=== PATIENT | male | born 1950 | race Caucasian/White ===

== ENCOUNTER 2024-02-24 14:57 | Emergency (ER) | payer MEDICARE, OTHER, SELFPAY ==
--- NOTE | 2024-02-24 15:02 | XRR_ITS ---
PROCEDURE INFORMATION: Exam: XR Chest Exam date and time: 02/24/2024 3:13 PM Age: 74 years old Clinical indication: Pain; Angina pectoris; Additional info: Cp TECHNIQUE: Imaging protocol: Radiologic exam of the chest. Views: 1 view. COMPARISON: No relevant prior studies available. FINDINGS: Lungs: There is no consolidation. Pleural spaces: The right lateral costophrenic sulcus is blunted. No pneumothorax. Heart/Mediastinum: There is mild enlargement of the cardiac silhouette. Bones/joints: Bones are unremarkable. XR/XR chest 1V portable [id number] IMPRESSION: Small right pleural effusion.
[2024-02-24 15:03] VITALS: BP 164/74; PULSE 67; RESP 18; TEMP 36.6; O2SAT 94; BMI 33.4
--- NOTE | 2024-02-24 15:03 | ECG_ITS ---
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 Measurements Intervals [place] Rate: 67 P: 55 [place]: 173 QRS: 57 QRSD: 89 T: 19 QT: 391 QTc: 414 Interpretive Statements SINUS RHYTHM No previous ECG available for comparison Electronically Signed On 02-24-2024 17:19:02 CDT by Lorenzo Aj M.D. [id number]
--- NOTE | 2024-02-24 15:37 | ED_ITS ---
HPI - Chest Pain 2 General: Chief Complaint: Chest Pain Stated Complaint: chest pains Time Seen by Provider: 02/24/24 15:29 Source: patient Mode of arrival: ambulatory Limitations: no limitations History of Present Illness: 74-year-old male states has been having chest pain that is mainly inspirational chest pain has been going on for 3 months. States he is gets sharp pain with inspiration and with exertion denies any pain currently denies any fever denies any cough. Associated symptoms: Reports dyspnea; Deny abdominal pain, fever(s), nausea or vomiting Review of Systems 2 Const: Denies: fever(s), chills, body aches or change in appetite ENMT: Denies: throat pain or dental pain Card: Reports: chest pain Resp: Reports: dyspnea GI: Denies: abdominal pain, nausea, vomiting or diarrhea Musc: Denies: neck pain or back pain Skin/Breast: Denies: rash Neuro: Denies: headache(s) Physical Exam 2 Const: COMMON NORMALS: no acute distress, patient oriented x3 and healthy appearing HENMT: COMMON NORMALS: normocephalic and atraumatic HEAD & SCALP: n ormocephalic and atraumatic Neck/C-Spine: COMMON NORMALS: full ROM and supple Chest: COMMONS NORMALS: normal inspection of the chest Resp: COMMON NORMALS: normal respiratory effort, No retractions, No use of accessory muscles and clear to auscultation bilaterally AUSCULTATION: clear to auscultation bilaterally Cardio: COMMON NORMALS: regular rate, regular rhythm and No murmurs present (Cardio) RATE: regular rate RHYTHM: regular rhythm GI: COMMON NORMALS: Normal to inspection, nondistended, normoactive bowel sounds present, Soft to palpation, non-tender and no masses PALPATION: Yes Soft to palpation Extremity: COMMON NORMALS: normal to inspection and full ROM Neuro: COMMON NORMALS: patient oriented x3, moves all extremities and no focal motor deficits Psych: COMMON NORMALS: mental status grossly normal, Normal thought process present and cooperative THOUGHT PROCESS: Normal thought process present Skin: COMMON NORMALS: no rashes or lesions noted and no wounds GENERAL SKIN EXAM: no rashes or lesions noted Course 2 Vital Signs: Vital signs: Vital Signs Temperature 97.8 F 02/24/24 15:03 Pulse Rate 61 02/24/24 17:00 Respiratory Rate 26 H 02/24/24 17:00 Blood Pressure 164/74 02/24/24 15:03 Pulse Oximetry 94 02/24/24 17:00 Oxygen Delivery Me thod Room Air 02/24/24 15:03 MDM - Chest Pain Medical Decision Making Patient presents here with chest pain dyspnea CT did show an pneumonitis patient was given Decadron here is no signs of PE troponins are negative no signs of ACS will prescribe him doxycycline as well he is to follow-up with PCP and return if worsening he understands agrees to plan. Medical Records I reviewed the patient's medical records. Lab Data I reviewed the patient's lab results. 02/24/24 15:35 02/24/24 15:35 Radiology Impressions Chest X-Ray 02/24/24 15:02 IMPRESSION: Small right pleural effusion. Chest CTA 02/24/24 16:13 IMPRESSION: 1. No pulmonary embolism. 2. Diffuse mosaic perfusion of the lung parenchyma. Differential diagnosis includes acute or chronic small airways disease and hypersensitivity pneumonitis. Mild interstitial edema may be present. 3. Small simple dependent right pleural effusion. 4. Tracheobronchomalacia. 5. Thyroid nodules. Recommend nonemergent follow-up ultrasound. 6. Moderate splenic enlargement. COMMENTS: Consistent with the [place]'s Incidental Findings Committee white paper (J Am Yaima Radiol 2015): In patients aged 35 years and older with an incidental thyroid nodule equal to or greater than 1.[address], MRI or extrathyroidal US, further evaluation with dedicated thyroid US is recommended for patients with normal life expectancy and without comorbidities. For smaller nodules without suspicious features, no further evaluation or follow up is recommended. Laboratory Results WBC 4.44 10^3/uL (3.29-11.43) 02/24/24 15:35 RBC 4.47 10^6/uL (3.85-5.65) 02/24/24 15:35 Hgb 11.20 g/dL (11.27-16.99) L 02/24/24 15:35 Hct 36.3 % (37-53) L 02/24/24 15:35 MCV 81.2 fl (82-101) L 02/24/24 15:35 MCH 25.1 pg (27-33) L 02/24/24 15:35 MCHC 30.9 g/dL (30-55) 02/24/24 15:35 RDW 16.3 % (12.1-15.1) H 02/24/24 15:35 Plt Count 236 10^3/cmm (157-399) 02/24/24 15:35 MPV 10.0 fL (7.4-10.4) 02/24/24 15:35 Neut % (Auto) 62.2 % 02/24/24 15:35 Lymph % (Auto) 20.7 % 02/24/24 15:35 [place] % (Auto) 6.3 % 02/24/24 15:35 Eos % (Auto) 9.5 % 02/24/24 15:35 Baso % (Auto) 1.1 % 02/24/24 15:35 Neut # (Auto) 2.76 10^3/uL (1.8-7.7) 02/24/24 15:35 Lymph # (Auto) 0.9 10^3/uL (0.8-4.8) 02/24/24 15:35 [place] # (Auto) 0.3 10^3/uL (0.2-0.9) 02/24/24 15:35 Eos # (Auto) 0.4 10^3/uL (0.0-0.8) 02/24/24 15:35 Baso # (Auto) 0.1 10^3/uL (0.0-0.1) 02/24/24 15:35 Nucleated RBC % (auto) 0 % 02/24/24 15:35 Nucleated RBCs # 0.0 /100WBC 02/24/24 15:35 D-Dimer 3.76 ug/mLFEU (0-0.59) H 02/24/24 15:35 Sodium 138 mmol/L (136-145) 02/24/24 15:35 Potassium 4.6 mmol/L (3.5-5.1) 02/24/24 15:35 Chloride 103 mmol/L (98-107) 02/24/24 15:35 Carbon Dioxide 24 mmol/L (22-29) 02/24/24 15:35 Anion Gap 15.6 (5-19) 02/24/24 15:35 BUN 18 mg/dL (8-23) 02/24/24 15:35 Creatinine 1.2 mg/dL (0.7-1.2) 02/24/24 15:35 GFR Calculation Not Reportable 02/24/24 15:35 Glucose 121 mg/dL (65-115) H 02/24/24 15:35 Calculated Osmolality 289 mOsm/kg (285-295) 02/24/24 15:35 Calcium 8.9 mg/dL (8.5-10.5) 02/24/24 15:35 Total Bilirubin 0.5 mg/dL (0.15-1.2) 02/24/24 15:35 AST 15 U/L (0-40) 02/24/24 15:35 ALT 11 U/L (0-41) 02/24/24 15:35 Alkaline Phosphatase 105 U/L (40-130) 02/24/24 15:35 Troponin T Baseline 39 ng/L (0-15) H 02/24/24 15:35 Troponin T 120 Minute 31.74 ng/L (0-15) H 02/24/24 17:46 Delta Troponin T -7.26 ABS# (0-10) L 02/24/24 17:46 NT-Pro-B Natriuret Pep 425 pg/mL (0-125) H 02/24/24 15:35 Total Protein 7.8 g/dL (6.6-8.7) 02/24/24 15:35 Albumin 3.7 g/dL (3.5-5.2) 02/24/24 15:35 Globulin 4.1 g/dL (1.3-4.6) 02/24/24 15:35 All radiology interpretation(s) finalized by discharge EKG Data EKG 1: I personally reviewed and interpreted this EKG as follows: EKG interpretation date: 02/24/24 EKG interpretation time: 14:56 Interpretation: nsr hr [address] or t wave abnormalities qrs 89 qtc 406 Discharge Plan Discharge Patient Disposition: Home Clinical Impression: Pneumonitis Condition: Stable Prescriptions: New doxycycline hyclate 100 mg tablet 100 mg PO BID 7 Days Qty: 14 0RF Discharge Orders: Discharge ED (Routine); Ordered 02/24/24 Ordered By: Alicja Russo Discharge Diet: Advance as tolerated Discharge Activity: Resume usual activity Patient Instructions: Chest Pain (ED), Shortness of Breath (ED) Coding Level of Care Code ED Director [employer] for [facility]
[2024-02-24 15:43] LABS: Basophils # 0.1 10^3/uL (0.0-0.1); Basophils % 1.1 %; Eosinophils # 0.4 10^3/uL (0.0-0.8); Eosinophils % 9.5 %; Hematocrit 36.3 % (37-53); Lymphocytes # 0.9 10^3/uL (0.8-4.8); Lymphocytes % 20.7 %; Mean Corpuscular HGB Conc 30.9 g/dL (30-55); Mean Corpuscular Hemoglobin 25.1 pg (27-33); Mean Corpuscular Volume 81.2 fl (82-101); Monocytes # 0.3 10^3/uL (0.2-0.9); Monocytes % 6.3 %; Neutrophils # 2.76 10^3/uL (1.8-7.7); Neutrophils % 62.2 %; Nucleated Red Blood Cells % 0 %; Platelet Count 236 10^3/cmm (157-399); Red Blood Count 4.47 10^6/uL (3.85-5.65); Red Cell Distribution Width 16.3 % (12.1-15.1); White Blood Count 4.44 10^3/uL (3.29-11.43)
[2024-02-24 16:00] VITALS: PULSE 64; RESP 18; O2SAT 94
[2024-02-24 16:07] LABS: D Dimer 3.76 ug/mLFEU (0-0.59)
[2024-02-24 16:09] LABS: Troponin(5th) Baseline 39 ng/L (0-15)
--- NOTE | 2024-02-24 16:13 | CTR_ITS ---
PROCEDURE INFORMATION: Exam: CTA Chest With Contrast Exam date and time: 02/24/2024 5:18 PM Age: 74 years old Clinical indication: Dyspnea; Patient HX: C/O left sided sharp chest pain when he inhales. States that it started today. Yesterday the pain was bilat ribs. Yesterday reports fever. HX HTN, t2dm, wears cpap denies n/v/d/cough/ sob/ dizzy/light-headedness. TECHNIQUE: Imaging protocol: Computed tomographic angiography of the chest with contrast. Exam focused on the arteries. 3D rendering (Not supervised by radiologist): MIP and/or 3D reconstructed images were created by the technologist. Radiation optimization: All CT scans at this facility use at least one of these dose optimization techniques: automated exposure control; mA and/or kV adjustment per patient size (includes targeted exams where dose is matched to clinical indication); or iterative reconstruction. Contrast material: OMNI 350; Contrast volume: 100 ml; Contrast route: INTRAVENOUS (IV); COMPARISON: CR XR chest 1V portable [id number] 02/24/2024 3:13 PM RADIATION DOSE METRICS: Total DLP (mGy-cm): 511.37 FINDINGS: Pulmonary arteries: The pulmonary arteries are adequately opacified for evaluation to the subsegmental level. There is no filling defect to suggest embolism. Aorta: The aorta is unremarkable. There is no aneurysm. Thyroid: Bilateral thyroid nodules measuring up to 19 mm. Lungs: Diffuse mosaic perfusion of the lung parenchyma characterized by patchy geographic areas of normal lung parenchyma, hyperlucent areas and ground-glass densities. No focal consolidation. Mild dependent atelectasis in the lung bases. There is decreased AP diameter of the distal trachea and central bronchi consistent with tracheobronchomalacia. Mild central bronchial wall thickening in the lower lungs. Pleural spaces: Small simple dependent right pleural effusion. Heart: There is mild cardiac enlargement. There is no pericardial effusion. Lymph nodes: There is no mediastinal or hilar lymphadenopathy. Spleen: The spleen is moderately enlarged. Bones/joints: Bones are unremarkable. Soft tissues: The extrathoracic soft tissues are unremarkable. CT/CT angio chest PE protcl [id number] IMPRESSION: 1. No pulmonary embolism. 2. Diffuse mosaic perfusion of the lung parenchyma. Differential diagnosis includes acute or chronic small airways disease and hypersensitivity pneumonitis. Mild interstitial edema may be present. 3. Small simple dependent right pleural effusion. 4. Tracheobronchomalacia. 5. Thyroid nodules. Recommend nonemergent follow-up ultrasound. 6. Moderate splenic enlargement. COMMENTS: Consistent with the [employer] [employer]'s Incidental Findings Committee white paper (J Am Yaima Radiol 2015): In patients aged 35 years and older with an incidental thyroid nodule equal to or greater than 1.[address], MRI or extrathyroidal US, further evaluation with dedicated thyroid US is recommended for patients with normal life expectancy and without comorbidities. For smaller nodules without suspicious features, no further evaluation or follow up is recommended.
[2024-02-24 16:19] LABS: Alanine Aminotransferase 11 U/L (0-41); Albumin Level 3.7 g/dL (3.5-5.2); Alkaline Phosphatase 105 U/L (40-130); Anion Gap 15.6 (5-19); Aspartate Amino Transferase 15 U/L (0-40); Blood Urea Nitrogen 18 mg/dL (8-23); Calcium 8.9 mg/dL (8.5-10.5); Carbon Dioxide 24 mmol/L (22-29); Chloride 103 mmol/L (98-107); Creatinine Clr Calc Pharmacy 63.7154; Globulin 4.1 g/dL (1.3-4.6); Glucose 121 mg/dL (65-115); NT Pro B Type Natriuretic Pept 425 pg/mL (0-125); Osmolality Calculated 289 mOsm/kg (285-295); Potassium 4.6 mmol/L (3.5-5.1); Sodium 138 mmol/L (136-145); Total Bilirubin 0.5 mg/dL (0.15-1.2); Total Protein 7.8 g/dL (6.6-8.7)
[2024-02-24 16:30] VITALS: PULSE 61; RESP 19; O2SAT 93
[2024-02-24 17:00] VITALS: PULSE 61; RESP 26; O2SAT 94
--- NOTE | 2024-02-24 17:03 | ECG_ITS ---
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 Measurements Intervals [place] Rate: 64 P: 47 [place]: 213 QRS: 3 QRSD: 86 T: 30 QT: 418 QTc: 432 Interpretive Statements SINUS RHYTHM WITH FIRST DEGREE AV BLOCK Compared to ECG 02/24/2024 14:56:24 First degree AV block now present Electronically Signed On 02-24-2024 17:22:16 CDT by Lorenzo Aj M.D. [email or web address] Expressionsac[id number]
[2024-02-24] MEDS: iohexol 350 mg/mL 500 mL Btl (per mL) IV (17:27)
[2024-02-24 17:30] VITALS: O2SAT 94
[2024-02-24 18:31] LABS: Troponin 5 2HR 31.74 ng/L (0-15)
[2024-02-24 18:38] LABS: Troponin 5 2HR Delta -7.26 ABS# (0-10)
[2024-02-24] MEDS: dexamethasone 10 mg/mL INJ IVP (18:44)
== END 2024-02-24 18:57 | disposition home or self-care (01) ==
PROVIDERS: Emergency Provider Emergency Medicine
DX: J98.4 Other disorders of lung (principal)
CPT/HCPCS: 36415; 71045; 71275; 80053; 83880; 84484; 85025; 85378; 93005; 96374; 99285; J1100; Q9967

== ENCOUNTER → 2024-03-09 10:29 | Outpatient (BNVA) | payer MEDICARE, OTHER, SELFPAY | PROVIDERS: Visit Provider Nurse Practitioner Family | DX: B35.4 Tinea corporis (principal) | CPT/HCPCS: 99213 ==

== ENCOUNTER → 2024-08-25 11:58 | Outpatient (BNVA) | payer MEDICARE, OTHER, SELFPAY | PROVIDERS: Visit Provider Internal Medicine | DX: R13.10 Dysphagia, unspecified (principal); E04.1 Nontoxic single thyroid nodule; E07.9 Disorder of thyroid, unspecified; E04.2 Nontoxic multinodular goiter | CPT/HCPCS: 99204 ==

== ENCOUNTER 2024-08-27 14:45 | Outpatient (CLI) | payer MEDICARE, OTHER, SELFPAY ==
--- NOTE | 2024-08-27 15:15 | USR_ITS ---
PROCEDURE INFORMATION: Exam: US Soft Tissue Head and Neck, Thyroid Exam date and time: 08/27/2024 3:21 PM Age: 74 years old Clinical indication: Dysphagia / difficulty swallowing; Additional info: Dysphagia and thyroid nodules, include tirads TECHNIQUE: Imaging protocol: Real-time ultrasound scan of the neck with image documentation. Exam focused on the thyroid. COMPARISON: CT angio chest PE protcl [id number] 02/24/2024 5:18 PM FINDINGS: The right lobe measures 5.7 x 2.5 x 3.4 cm. The left lobe measures 4.4 x 1.5 x 2.2 cm. The isthmus measures 4 mm. Thyroid architecture is heterogeneous. Suspect multiple bilateral nodules with relatively poorly defined margins. This includes a nodular focus in the midpole of the right lobe measuring 2.7 x 2.3 x 2.1 cm. It has a cystic or necrotic center and surrounding solid tissue is heterogeneous with some hypoechoic and hyperechoic areas. TR 4. Moderately suspicious. FNA is recommended. There is a similar heterogeneous nodular focus in the left lobe with poorly defined margins measuring about 4.4 x 1.5 x 2.2 cm. TR 4. Moderately suspicious. FNA is recommended. US/US thyroid [id number] IMPRESSION: FNA is recommended for a moderately suspicious nodule in each lobe.
== END 2024-08-27 14:46 | disposition home or self-care (01) ==
LOC: RAD 14:51
PROVIDERS: Visit Provider Internal Medicine
DX: R94.6 Abnormal results of thyroid function studies (principal); R13.10 Dysphagia, unspecified
CPT/HCPCS: 76536

== ENCOUNTER 2024-09-01 11:43 | Outpatient (CLI) | payer MEDICARE, OTHER, SELFPAY ==
[2024-09-01 12:29] LABS: Free T4 Free Thyroxine 1.61 ng/dL (0.82-1.77); Thyroid Stimulating Hormone 1.79 uIU/mL (0.27-4.20)
--- NOTE | 2024-09-01 12:30 | FL_ITS ---
WS: [id number] Modified barium swallow, 09/01/2024 Clinical Data: Dysphagia and sensation of food sticking in the throat, worse in the last 3 to 4 month s. Comparison: None. Fluoroscopy time: 3min [id number] # of spot films: 1 Findings: The patient had poor oral mastication because of missing dentition. There is significant oral residue . There was premature spillage and then hypopharyngeal residue. The residue cleared with double swall owing. No aspiration or penetration occurred. The barium tablet could not be advanced beyond the mout h and needed to be retrieved. FL/FL barium swallow modifd [id number] Impression: 1. Poor oral mastication with significant oral residue. 2. Premature spillage with hypopharyngeal residue. 3. No aspiration or penetration. 4. Barium tablet could not be advanced beyond the oral cavity.
== END 2024-09-01 11:44 | disposition home or self-care (01) ==
LOC: RAD 11:44
PROVIDERS: Visit Provider Internal Medicine
DX: R13.10 Dysphagia, unspecified (principal); E07.9 Disorder of thyroid, unspecified; R93.3 Abnormal findings on diagnostic imaging of other parts of digestive tract
CPT/HCPCS: 74230; 84439; 84443; 92611

== ENCOUNTER 2024-09-28 08:58 | Outpatient (CLI) | payer MEDICARE, OTHER, SELFPAY ==
--- NOTE | 2024-09-28 09:01 | FL_ITS ---
WS: [id number] FL barium swallow [id number] REASON FOR EXAM: DYSPHAGIA FLUOROSCOPY TIME: 2min [id number] # OF SPOT FILMS: Multiple 1 FINDINGS: The examination was somewhat limited due to the severe anterior subluxation of the cervical spine in the fragile condition of the patient. The swallowing of barium was performed with the patient in the upright AP and lateral position, the p loreta GALEAS position, and the supine and RPO position. Swallowing of barium was monitored fluoroscopically and rapid sequence spot films obtained. The cervical esophagus demonstrated normal motility and anatomy. No aspiration was identified. There was a small sliding hiatal hernia. Reflux was not elicited in the supine RPO position. There was intermittent but somewhat persistent spasm of the lower esophageal sphincter resulting in m ild dilatation of the esophagus with delayed emptying and tertiary contractions. No significant retrograde reflux from the esophagus. FL/FL barium swallow [id number] IMPRESSION: No aspiration. Small sliding hiatal hernia without stricture or reflux. Mild to moderate esophageal dysmotility as above.
== END 2024-09-28 08:59 | disposition home or self-care (01) ==
LOC: RAD 08:58
PROVIDERS: PCP Student in an Organized Health Care Education/Training Program; Visit Provider Specialist
DX: R13.10 Dysphagia, unspecified (principal); K44.9 Diaphragmatic hernia without obstruction or gangrene; K22.89 Other specified disease of esophagus
CPT/HCPCS: 74220

== ENCOUNTER → 2024-10-22 10:03 | Outpatient (BNVA) | payer MEDICARE, OTHER, SELFPAY | PROVIDERS: PCP Student in an Organized Health Care Education/Training Program; Visit Provider Internal Medicine | DX: R13.10 Dysphagia, unspecified (principal); E04.2 Nontoxic multinodular goiter; I63.9 Cerebral infarction, unspecified; F03.90 Unspecified dementia, unspecified severity, without behavioral disturbance, psychotic disturbance, mood disturbance, and anxiety | CPT/HCPCS: 99214 ==

== ENCOUNTER → 2024-12-14 09:11 | Outpatient (BNVA) | payer MEDICARE, OTHER, SELFPAY | PROVIDERS: PCP Student in an Organized Health Care Education/Training Program; Visit Provider Nurse Practitioner Family | DX: L29.89 Other pruritus (principal); D22.39 Melanocytic nevi of other parts of face; L73.8 Other specified follicular disorders; D69.2 Other nonthrombocytopenic purpura; L85.3 Xerosis cutis; L57.0 Actinic keratosis; X32.XXXA Exposure to sunlight, initial encounter | CPT/HCPCS: 17000; 99213 ==

== ENCOUNTER → 2024-12-16 12:41 | Outpatient (BNVA) | payer MEDICARE, OTHER, SELFPAY | PROVIDERS: PCP Student in an Organized Health Care Education/Training Program; Visit Provider Internal Medicine | DX: E78.5 Hyperlipidemia, unspecified (principal); R07.9 Chest pain, unspecified | CPT/HCPCS: 93005; 99204 ==

== ENCOUNTER 2025-09-04 07:15 | Inpatient (IN) | payer MEDICARE, MEDICAID, SELFPAY ==
[2025-09-04 07:18] VITALS: BMI 22.4
--- OUTSIDE RECORDS SUMMARY | 2025-09-04 07:18 | XMS_ITS | Clinical Summary ---
Author Organization [facility] Address [address] [place] [address] Phone Care Team Providers Care Volunteer Recruitment Coordinator Name Role Phone Unavailable Primary Care Provider Unavailabl e Encounters Date Type Department Care Team Description 08/30/2025 External Device Data [facility] ABSTRACTION Provider, Abstract 07/19/2025 External Device Data [facility] ABSTRACTION Provider, Abstract 07/19/2025 External Device Data [facility] ABSTRACTION Provider, Abstract 07/19/2025 External Device Data [facility] ABSTRACTION Provider, Abstract 07/18/2025 Telephone [facility] Neurology [facility] [address] [place] [address] Mark Khan MD Appointment Verification 06/30/2025 Abstract [facility] [address] [place] [address] Mark Khan MD 06/30/2025 Abstract [facility] [address] [place] [address] Mark Khan MD 06/14/2025 [facility] Neu[facility] [address] [place] [address] Mark Khan MD from Last 3 Months Social History Tobacco Use Types Packs/Day Years Used Date Smoking Tobacco: Never Assessed Sex and Gender Information Value Date Recorded Sex Assigned at Not on file Legal Sex Male 10:04 AM CDT Gender Identity Not on file Sexual Orientation Not on file Plan of Treatment Health Maintenance Due Date Last Done Comments DTAP/TDAP/TD VACCINES (1 - Tdap) 02/14/1971 COLORECTAL SCREENING 02/14/1997 Colorectal Cancer Screening 02/14/1997 FIT-DNA Q 3 years 02/14/1997 FIT/FOBT Q 1 year 02/14/1997 Flex Sig/CT Colonography Q 5 years 02/14/1997 PNEUMOCOCCAL VACCINE 50+ YEARS (1 of 1 - PCV) 02/15/20 02 ZOSTER VACCINE (1 of 2) 02/14/2002 INFLUENZA VACCINE (#1) 2025 RSV VACCINE (60+ or ) (1 - 1-dose 75+ series) 02/14/2027 Insurance MEDICARE PART A AND B [facility] Address: [address] [place] [address]
--- OUTSIDE RECORDS SUMMARY | 2025-09-04 07:18 | XMS_ITS | Clinical Summary ---
Author Organization [facility] Address [address] [place] [address] Phone Care Team Providers Care Greenhouse Specialist Name Role Phone Unavailable Primary Care Provider Unavailabl e Allergies No known active allergies Medications amLODIPine (Norvasc) 5 mg tablet Take 5 mg by mouth 1 (one) time each day. Active aspirin 81 mg EC tablet Take 81 mg by mouth 1 (one) time each day. Active atorvastatin (Lipitor) 20 mg tablet Take 20 mg by mouth every other day. Active cloNIDine (Catapres) 0.1 mg tablet Take 0.2 mg by mouth 1 (one) time each day. Active cloNIDine (Catapres) 0.3 mg tablet Take 0.3 mg by mouth every night. Active hydrALAZINE (Apresoline) 100 mg tablet Take 100 mg by mouth 3 (three) times a day. Active LORazepam (Ativan) 0.5 mg tablet Take 0.5 mg by mouth every night. Active ferrous sulfate 325 mg (65 mg iron) EC tablet Take 325 mg by mouth every other day. Do not crush, chew, or split. Active tamsulosin (Flomax) 0.4 mg 24 hr capsule Take 0.4 mg by mouth 1 (one) time each day. Active montelukast (Singulair) 10 mg tablet Take 10 mg by mouth every night. Active metFORMIN (Glucophage) 500 mg tablet Take 1,000 mg by mouth 1 (one) time each day with dinner. Do not crush, chew, or split. Active amiodarone (Pacerone) 200 mg tablet Take 2 tablets (400 mg total) by mouth 2 (two) times a day for 7 days, THEN 1 tablet (200 mg total) 2 (two) times a day for 7 days, THEN 1 tablet (200 mg total) 1 (one) time each day. 72 tablet 4 Active apixaban (Eliquis) 5 mg tablet Take 1 tablet (5 mg total) by mouth 2 (two) times a day. 60 tablet 2 4 Active Additional Information Patient not taking.Reported on 05/13/2024 nitroglycerin (Nitrostat) 0.[address] 1 tablet (0.4 mg total) under the tongue every 5 (five) minutes if needed for chest pain. 90 tablet 4 Active Additional Information Patient not taking.Reported on 05/13/2024 metoprolol tartrate (Lopressor) 25 mg tablet Take 2 tablets (50 mg total) by mouth 2 (two) times a day. 120 tablet 2 4 Active traZODone (Desyrel) 50 mg tablet 75 mg. 4 Active magnesium gluconate 12.5 mg magne- sium (250 mg) tablet 250 mg. 2 Active Active Problems Problem Noted Date Diagnosed Date Acute respiratory failure with hypoxia Angina pectoris, unstable 04/15/2024 Elevated troponin 04/11/2024 Pneumonia due to infectious organism 04/11/2024 Chronic GERD 04/11/2024 Essential hypertension 04/11/2024 Benign prostatic hyperplasia with urinary obstru ction 04/11/2024 Hypercholesterolemia with hypertriglyceridemia 0 04/11/2024 Obstructive sleep apnea syndrome 04/11/2024 Overview (04/11/2024): PSG 04/2018 AHI 26 Uncontrolled type 2 diabetes mellitus with hyperglycemia, without long-term current use of insulin 04/11/2024 COPD (chronic obstructive pulmonary disease) Family History Medical History Relation Comments No Known Problems Brother Cancer Father No Known Problems Father's Brother No Known Problems Father's Sister No Known Problems Maternal Grandfather No Known Problems Maternal Grandmother No Known Problems Mother No Known Problems Mother's Brother No Known Problems Mother's Sister No Known Problems Paternal Grandfather No Known Problems Paternal Grandmother No Known Problems Sister Relation Status Comments Brother Father Father's Brother Father's Sister Maternal Grandfather Maternal Grandmother Mother Mother's Brother Mother's Sister Paternal Grandfather Paternal Grandmother Sister Social History Tobacco Use Types Packs/Day Years Used Date Smoking Tobacco: Never Smokeless Tobacco: Never Tobacco Cessation:Counseling Given: Not Answered Alcohol Use Standard Drinks/Week Comments Never 0 (1 standard drink = 0.6 oz pur e alcohol) [facility] Utilities Answer Date Recorded In the past 12 months has e [employer], gas, oil, or water [employer] threatened to shut off services in your home? No 04/11/2024 Humiliation, Afraid, Rape, and Kick questionnair e Answer Date Recorded Within the last year, have y ou been afraid of your partner or ex-partner? No 04/11/2024 Within the last year, have y ou been humiliated or emotionally abused in other ways by your partner or ex-partner? No Within the last year, have y ou been kicked, hit, slapped, or otherwise physically hurt by your partner or ex-partner? No 04/11/2024 Within the last year, have y ou been raped or forced to have any kind of sexual activity by your partner or ex-partner? No 04/11/2024 Overall Financial Resource Strain (CARDIA) Answe r Date Recorded How hard is it for you to pa y for the very basics like food, housing, medical care, and heating? Not hard at all 04/11/2024 PHQ-2 Answer Date Recorded Patient Health Questionnaire-2 Score 2 05/14/2024 Hunger Vital Sign Answer Date Recorded Within the past 12 months, y ou worried that your food would run out before you got the money to buy more. Never true 04/11/20 Within the past 12 months, t he food you bought just didn't last and you didn't have money to get more. Never true 04/11/2024 PRAPARE - Transportation Answer Date Re corded In the past 12 months, has l ack of transportation kept you from medical appointments or from getting medications? No 03/16 In the past 12 months, has l ack of transportation kept you from meetings, work, or from getting things needed for daily living? No 04/11/2024 Housing Stability Vital Sign Answer Delfino e Recorded In the last 12 months, was t here a time when you were not able to pay the mortgage or rent on time? No 04/11/2024 In the past 12 months, how m any times have you moved where you were living? 0 04/11/2024 At any time in the past 12 m [facility], were you homeless or living in a usp (including now)? No 04/11/2024 [facility] - Mental Health Answer Date Recorde d Little interest or pleasure in doing things Nadia ral days 05/14/2024 Feeling down, depressed, or hopeless Several day s 05/14/2024 Feeling of Stress Not on file 05/14/2024 Sex and Gender Information Value Date Recorded Sex Assigned at Not on file Legal Sex Male 11:57 PM CDT Gender Identity Not on file Sexual Orientation Not on file Last Filed Vital Signs Vital Sign Reading Time Taken Comments Blood Pressure 106/61 05/14/2024 12:54 PM CDT Pulse 61 05/14/2024 12:54 PM CDT Temperature 36.4 C (97.5 F) 05/14/2024 12:54 PM CDT Respiratory Rate 20 05/14/2024 12:54 PM CDT Oxygen Saturation 96% 05/14/2024 12:54 PM CDT RA Inhaled Oxygen Concentration - - Weight 92.5 kg (204 lb) 05/14/2024 12:54 PM CDT Height 170.2 cm (5' 7 ) 05/14/2024 12:54 PM CDT Body Mass Index 31.95 05/14/2024 12:54 PM CDT Plan of Treatment Health Maintenance Due Date Last Done Comments CT Colonography 1950 Colonoscopy 1950 Colorectal Cancer Screening 1950 FIT-DNA 1950 FIT 1950 FOBT 1950 Sigmoidoscopy 1950 MMR Vaccines (1 of 1 - Standard series) 02/14/1953 DTaP,Tdap,and Td Vaccines (1 - Tdap) 02/14/1959 Diabetes: Foot Exam 02/14/1962 Diabetes: Retinopathy Screening 02/14/1962 Varicella Vaccines (1 of 2 - 13+ 2-dose series) 02/14/1965 Depression Screening 02/14/1970 Hepatitis C Screening 02/14/1970 Social Drivers of Health (SDoH) 02/14/1970 Hepatitis A Vaccines (1 of 2 - Risk 2-dose series) 02/14/1971 Hepatitis B Vaccines (1 of 3 - Risk 3-dose series) 2012 Zoster Vaccines (2 of 3) 03/15/2016 01/19/2016, 1010/2012 Diabetes: Hemoglobin A1C 07/12/2024 04/11/2024 Medicare Initial AWV [id number] 03/15/2025 Creatinine Level 04/16/2025 04/16/2024, 09/2023, 04/14/2024, Additional history exists Potassium Level 04/16/2025 04/16/2024, 0809/2023, 04/14/2024, Additional history exists Complete Fall Risk Assessment 05/13/2025 05/13/2024, 05/13/2024, 05/13/2024 COVID-19 Vaccines ( season) 2025 Influenza Vaccine (#1) 2025 , 08/29/2022, 07/23/2021, Additional history exists Pneumococcal Vaccines: 50+ Years Completed 09/28/2018, 08/28/2017 RSV Vaccines Completed 08/21/2023 HIB Vaccines Aged Out No longer eligi ble based on patient's age to complete this topic HPV Vaccines Aged Out No longer eligi ble based on patient's age to complete this topic IPV Vaccines Aged Out No longer eligi ble based on patient's age to complete this topic Meningococcal B Vaccine Aged Out No l onger eligible based on patient's age to complete this topic Meningococcal Vaccine Aged Out No josh jordan eligible based on patient's age to complete this topic Rotavirus Vaccines Aged Out No longer eligible based on patient's age to complete this topic Procedures Procedure Name Priority Date/Time Associated Diagnosis Comments BASIC METABOLIC PANEL Routine 04/16/2024 4:16 AM CDT HEMOGLOBIN A1C Add-On 04/11/2024 3:22 AM CDT from Last 3 Months or Most Recently Relevant to Health Maintenance Results * (ABNORMAL) Basic Metabolic Profile (04/16/2024 4:16 AM CDT) [facility] Glucose 351(H) 70 - 100 mg/dL LAB CHEMISTRY METHOD 04/16/2024 4:55 AM CDT [facility] BUN 61(H) 9 - 20 mg/dL LAB CHEMISTRY METHOD 04/16/2024 4:55 AM CDT [facility] Creatinine 1.78(H) 0.66 - 1.25 mg/dl LAB CHEMISTRY METHOD 04/16/2024 4:55 AM CDT [facility] BUN/Creatinine Ratio 34(H) 12 - 17 LAB CHEMISTRY METHOD 04/16/2024 4:55 AM CDT [facility] Sodium 136 135 - 145 mmol/L LAB CHEMISTRY METHOD 04/16/2024 4:55 AM CDT [facility] Potassium 4.2 3.6 - 5.0 mmol/L LAB CHEMISTRY METHOD 04/16/2024 4:55 AM CDT [facility] Chloride 106 101 - 111 mmol/L LAB CHEMISTRY METHOD 04/16/2024 4:55 AM CDT [facility] Total Carbon Dioxide 23 22 - 30 mmol/L LAB CHEMISTRY METHOD 04/16/2024 4:55 AM CDT [facility] Anion Gap 11 9 - 17 mmol/L LAB CHEMISTRY METHOD 04/16/2024 4:55 AM CDT [facility] Calcium 8.9 8.2 - 10.2 mg/dL LAB CHEMISTRY METHOD 04/16/2024 4:55 AM CDT [facility] eGFR 40(L) >=60 mL/min/1. 73 m2 LAB CHEMISTRY METHOD 04/16/2024 4:55 AM CDT [facility] Comment:Moderate Risk of Chr onic Kidney Disease Blood Venous blood specimen / Unknown Venipuncture / Unknown 04/16/2024 4:16 AM CDT 04/16/2024 4:33 AM CDT Narrative [facility] - 04/16/2024 4:55 AM CDT Slight hemolysis us Ema Hogan MD LAB BLOOD ORDERABLES Final Result [facility] [address] [address] * Hemoglobin A1c (04/11/2024 3:22 AM CDT) Hemoglobin A1c 5.7 % 04/11/2024 10:19 AM CDT [facility] Estimated Average Glucose 117 mg/dL 04/11/2024 10:19 AM CDT [facility] Blood Venous blood specimen / Unknown Venipuncture / Unknown 04/11/2024 3:22 AM CDT 04/11/2024 3:33 AM CDT Narrative [facility] - 04/11/2024 10:19 AM CDT HgbA1C ranges recommended by the [place] Diabetes [employer] (ADA): >6.5% Diabetic 5.7-6.4% Pre-Diabetic <5.7% Non-Diabetic us Ema Hogan MD LAB BLOOD ORDERABLES Final Result [facility] [address] [address] from Last 3 Months or Most Recently Relevant to Health Maintenance Insurance MEDICARE [facility] Advance Directives For more information, please contact: [phone] (7:30 AM - 5PM [facility], 7 days a week) * Full Code (Latest Code Status on File) Date Activated Date Inactivated Comments 04/11/2024 2:52 AM 04/16/2024 6:12 PM
--- OUTSIDE RECORDS SUMMARY | 2025-09-04 07:18 | XMS_ITS | Encounter Summary ---
Author Organization [facility] Address [address] [place] [address] Care Team Providers Care Academic Affairs Dean Name Role Phone Unavailable Primary Care Provider Unavailabl e Encounter Details Date Type Department Care Team (Late st Contact Info) Description 08/30/2025 External Device Data [facility] ABSTRACTION Provider, Abstract NO ADDRESS ON FILE Social History Tobacco Use Types Packs/Day Years Used Date Smoking Tobacco: Never Assessed Sex and Gender Information Value Date Recorded Sex Assigned at Not on file Legal Sex Male 10:04 AM CDT Gender Identity Not on file Sexual Orientation Not on file documented as of this encounter Plan of Treatment Not on file documented as of this encounter Visit Diagnoses Not on filedocumented in this encounter
--- NOTE | 2025-09-04 10:22 | P.HP_ITS ---
<Statement entered by Gopal Shelton MD - 09/04/25 20:31> Patient with multiple medical comorbidities, with acute sepsis UTI, marked leukocytosis. I have reviewed the ANTONELLA note and agree with the assessment and plan. Providers/Chief Complaint Admitting Physician: Bobby Montiel MD Primary Care Provider: Dorothy Millard DO Chief Complaint: pneumonia, covid pos History of Present Illness Chaka Horn is a 75 year old male with prior medical history of HLD, DM, CKD, CHF, BPH, PNA, MAYI, pulmonary edema, anemia, asthma, biliary colic, gallbladder disease, failure to thrive, dysphagia, tinea corporis, multiple thyroid nodules, stroke, former smoker, and dementia presenting with complaints of shortness of breath and lethargy. 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 Now requiring 5 L simple facemask here. Approximately 3 days ago, symptoms began and he presented to [facility] via private vehicle. At OSH, spo2 in the 80's, WBC 10.6, HGB 10.3, PLT 189, glucose 133, creatinine 1.1, BUN 21. Lactic acidosis 3.9, procalcitonin 0.30. Troponin 0.015, myco pneumoniae NEG, EKG; SR with occasional PVC's, non- specific ST and T wave abnormality, QT 488, QTC 541. He was diagnosed with COVID and started on remdesivir, decadron, and Lasix. He was transported to [facility] ED for a higher level care. Review of Systems General: Reports: 10 or more systems reviewed and unremarkable except in HPI and below Eyes: Reports: other (right eye vision loss ) Card: Reports: dyspnea on exertion Resp: Reports: dyspnea GI: Reports: diarrhea Musc: Reports: muscle weakness Skin/Breast: Reports: other (venous stasis staining) Medications/Allergies Home Medications ?Medication ?Instructions ?Recorded ?Confirmed ?Last Taken ?Type amlodipine 10 mg tablet 10 mg PO DAILY 08/25/2408/16 Unknown History atorvastatin 20 mg tablet 20 mg PO DAILY 08/25/2408/16 Unknown History escitalopram oxalate 20 mg tablet 20 mg PO DAILY 08/2509/04/25 Unknown History montelukast 10 mg tablet 10 mg PO DAILY 08/25/2408/16 Unknown History pantoprazole 40 mg tablet,delayed 40 mg PO BID 4 09/04/25 Unknown History release tamsulosin 0.4 mg capsule 0.4 mg PO DAILY 08/25/24 Unknown History cyanocobalamin (vitamin B-12) 1,000 mcg PO DAILY 12/1609/04/25 Unknown History 1,000 mcg capsule donepezil 5 mg tablet (Aricept) 5 mg PO DAILY 12/16/24 09/04/25 Unknown History bumetanide 0.5 mg tablet 0.5 mg PO QAM 09/04/2509/04 Unknown History furosemide 20 mg tablet 20 mg PO DAILY 09/04/2508/16 Unknown History magnesium 200 mg tablet 200 mg PO DAILY 09/04/25 Unknown History metformin 500 mg tablet 1,000 mg PO BID 09/04/25 Unknown History metoprolol tartrate 25 mg tablet 50 mg PO BID 09/04/25 09/04/25 Unknown History potassium chloride 10 mEq 30 meq PO BID 09/04/2509/04 Unknown History capsule,extended release quetiapine 25 mg tablet 25 mg PO BID 09/04/25 Unknown History trazodone 150 mg tablet 150 mg PO BEDTIME 09/04/25 1 11/05/24 Unknown History Allergies Allergy/AdvReac Type Severity Reaction Status Date / Time No Known Allergies Allergy Verified 12/16/24 12:34 PFSH Acute PFSH: Social History (Reviewed 09/04/25 @ 10:25 by Michelle Palmer, ELEVATOR EXAMINER AND ADJUSTER, FULL STACK NET DEVELOPER) Smoking and tobacco/nicotine status: former use of tobacco/nicotine Vitals/I&O/Wt Last Vital Signs O2 Del Method Simple Mask 09/04/25 07:18 Weight last 48 hrs Weight 67 kg Physical Exam Const: COMMON NORMALS: no acute distress and alert HENMT: COMMON NORMALS: normocephalic and atraumatic HEAD & SCALP: normal to inspection and normocephalic Eye: COMMON NORMALS: Equal, round and reactive pupils present Neck/C-Spine: COMMON NORMALS: no JVD Lymph: LYMPHATIC: no lymphadenopathy noted Chest: COMMONS NORMALS: normal inspection of the chest Resp: OTHER: decreased breath sounds Cardio: COMMON NORMALS: regular rate and regular rhythm GI: COMMON NORMALS: Normal to inspection, nondistended, normoactive bowel sounds present A&P Assessment and plan 1. Dyspnea: Pulse oximetry Supplemental O2 to keep saturations greater than 92% Patient normally on 3 L O2 at home, required up to 10L at OSH Currently requiring 5 L facemask Treatment for COVID 2. COVID: Denies sick contacts, symptoms started 3 days ago CXR Remdesivir considered but not given at OSH s/t hospital policy Dexamethasone Lovenox Vitamin C, vitamin D, zinc Droplet isolation Pantoprazole 3. Sepsis: SIRS criteria positive at OSH T 100.5, spo2 84% on normal 3L home O2, RR > 20 pH 7.43, pCO@ 47, pO2 71, HCO3 30 Procalcitonin 0.30 Urinalysis; 3+ protien, 2+ blood, otherwise clear Blood cultures drawn Monitor lactic, procalcitonin Fluids held in lieu of fluid overload - lasix given Rocephin, Azithromycin Probiotic 4. Hyperlipidemia: Continue home atorvastatin 5. CHF (congestive heart failure): Acute respiratory failure with hypoxia 06/03/2024 ECHO at [facility]; left ventricle normal in size, no segmental wall abnormalities, global LV systolic function preserved, normal left atrial and right ventricle size, preserved right ventricular systolic function, right atrium normal in size. Valves; aortic valve is trileaflet in appearance, mild aortic sclerosis, mild aortic regurgitation, aortic root is normal in size, mitral valve structurally normal, mild mitral regurgitation, pulmonic valve stru cturally and functionally normal, mild tricuspid regurgitation, see full results. EF 65-70%. Repeat ECHO EKG Lasix BNP I&O monitoring 6. Hypertension: BP 180s systolic now 155 systolic this morning Continue home Metoprolol 7. Dementia: Continue home donepezil 8. History of HI (myocardial infarction): Established with [facility] EKG ECHO in 05/2024 at [facility] as above Repeat ECHO 9. Diabetes mellitus: On home metformin - hold Sliding scale A1c pending PDMP PDMP Reviewed: Not Reviewed Attestations Medical Necessity Statement*: Initial hospitalization expected to cross 2 midnights for increased oxygen requirement and COVID treatment. Diagnoses Dyspnea R06.00 COVID U07.1 Sepsis A41.9 Hyperlipidemia E78.5 CHF (congestive heart failure) I50.9 Hypertension I10 Dementia F03.90 History of HI (myocardial infarction) I25.2 Diabetes mellitus E11.9
[2025-09-04 11:45] VITALS: BP 135/76; PULSE 68; RESP 12; O2SAT 97
--- NOTE | 2025-09-04 12:28 | USCV_ITS ---
Chaka Horn Age: 75 Gender: M : 1950 Exam Date: 09/04/2025 14:33 Ordering Phys: Michelle Palmer EGG PASTEURIZER Technologist: ROBERTO Exam Location: [facility] Indication: CHF, Sepsis, Covid BP: 135 / 76 HR: 63 Rhythm: Sinus Technical Quality: Adequate MEASUREMENTS (Male / Female) Normal Values 2D ECHO LV Diastolic Diameter PLAX 5.5 cm 4.2 - 5.9 / 3.9 - 5.3 cm IVS Diastolic Thickness 0.7 cm 0.6 - 1.0 / 0.6 - 0.9 cm IVS Systolic Thickness 1.0 cm LVPW Diastolic Thickness 0.8 cm 0.6 - 1.0 / 0.6 - 0.9 cm LVPW Systolic Thickness 1.3 cm LVOT Diameter 2.0 cm LV Ejection Fraction 2D Teich 40.3 % LV Ejection Fraction MOD 4C 58.6 % LV Ejection Fraction MOD 2C 54.8 % LV Ejection Fraction 2C AL 58.1 % LA Diameter 4.0 cm RA Systolic Volume 4C AL 44.9 ml RA Systolic Volume 4C MOD 44.3 ml LA Sys Volume AL 80.8 cm cubed LA Sys Volume Index AL 45.1 cm cubed/m squared Aorta at Sinotubular Diameter 2.4 cm IVC Diameter 2.2 cm M-MODE LA Ao Ratio MM 2.1 AV Cusp Separation MM 1.7 cm DOPPLER AV Peak Velocity 122.0 cm/s LVOT Peak Velocity 86.0 cm/s AV Area Cont Eq vti 2.2 cm squared AV Area Cont Eq pk 2.2 cm squared MV Peak Velocity 111.0 cm/s MV Area PHT 7.5 cm squared Mitral E to A Ratio 1.3 TR Peak Velocity 98.0 cm/s TR Peak Gradient 3.8 mmHg TV Peak E Velocity 91.0 cm/s PV Peak Velocity 88.0 cm/s FINDINGS Left Ventricle Normal left ventricular size, systolic function and wall thickness, with no regional wall motion abnormalities. Left ventricular ejection fraction is estimated at 60 %. Grade II/IV diastolic dysfunction, moderately elevated filling pressures. Right Ventricle Normal right ventricular size and systolic function. Right Atrium Normal right atrial size. Left Atrium Mildly increased left atrial size. IA Septum Normal appearance of the interatrial septum. Mitral Valve Moderately thickened mitral valve. No mitral valve stenosis. Mild mitral valve regurgitation. Aortic Valve Normal aortic valve structure. No aortic valve stenosis or regurgitation. Tricuspid Valve Normal tricuspid valve structure. No tricuspid valve stenosis or regurgitation. Normal pulmonary pressure. Pulmonic Valve Normal pulmonic valve structure. No pulmonic valve stenosis or regurgitation. Pericardium No pericardial effusion. Aorta Normal diameter of the aortic root and ascending thoracic aorta. IVC Normal IVC diameter. CONCLUSIONS Normal left ventricular size, systolic function and wall thickness, with no regional wall motion abnormalities. Left ventricular ejection fraction is estimated at 60 %. Grade II/IV diastolic dysfunction, moderately elevated filling pressures. Moderately thickened mitral valve. No mitral valve stenosis. Mild mitral valve regurgitation. There is no pericardial effusion. Right atrial pressure is around 5 mm of mercury. Iglesia Boyce MD (Electronically Signed) Final Date: 04 September 2025 19:32 S
[2025-09-04] MEDS: cefTRIAXone 1,000 mg SDV 1000 MG IVP (14:06)
[2025-09-04] MEDS: pantoprazole 40 mg SDV IVP (14:13)
[2025-09-04 15:05] LABS: Estmated Average Glucose 94; Hemoglobin A1C 4.9 % (4.0-6.0)
[2025-09-04 15:11] LABS: Cholesterol 98 mg/dL (0-200); HDL Cholesterol 48 mg/dL (60-100); NT Pro B Type Natriuretic Pept 12159 pg/mL (0-125); Triglycerides 56 mg/dL (0-150)
[2025-09-04 15:34] VITALS: BP 141/65; PULSE 65; RESP 22; O2SAT 95
[2025-09-04] MEDS: lactobacillus 1 Tablet 1 TAB PO (17:29)
[2025-09-04 20:18] VITALS: BP 143/69; PULSE 63; RESP 21; TEMP 36.6; O2SAT 100
[2025-09-04] MEDS: ATORVASTATIN 20 MG TABLET PO (21:14)
[2025-09-05 00:30] VITALS: BP 156/75; PULSE 73; RESP 17; TEMP 36.5; O2SAT 97
[2025-09-05] MEDS: cefTRIAXone 1,000 mg SDV 1000 MG IVP ×2 (02:47→15:36)
[2025-09-05 03:35] LABS: Hematocrit 29.8 % (37-53); Hemoglobin 8.80 g/dL (11.27-16.99); Mean Corpuscular HGB Conc 29.5 g/dL (30-55); Mean Corpuscular Hemoglobin 24.1 pg (27-33); Mean Corpuscular Volume 81.6 fl (82-101); Nucleated Red Blood Cells % 0 %; Platelet Count 172 10^3/cmm (157-399); Red Blood Count 3.65 10^6/uL (3.85-5.65); White Blood Count 7.97 10^3/uL (3.29-11.43)
[2025-09-05 03:53] LABS: Alanine Aminotransferase 6 U/L (0-41); Albumin Level 3.6 g/dL (3.5-5.2); Alkaline Phosphatase 79 U/L (40-130); Anion Gap 11.9 (5-19); Aspartate Amino Transferase 15 U/L (0-40); Blood Urea Nitrogen 27 mg/dL (8-23); Calcium 9.6 mg/dL (8.5-10.5); Carbon Dioxide 34 mmol/L (22-29); Chloride 103 mmol/L (98-107); Globulin 2.4 g/dL (1.3-4.6); Glucose 158 mg/dL (65-115); Osmolality Calculated 308 mOsm/kg (285-295); Potassium 3.9 mmol/L (3.5-5.1); Sodium 145 mmol/L (136-145); Total Protein 6.0 g/dL (6.6-8.7)
[2025-09-05 04:00] VITALS: BP 147/72; PULSE 88; RESP 14; TEMP 36.4; O2SAT 93
[2025-09-05] MEDS: lactobacillus 1 Tablet 1 TAB PO ×2 (05:28→17:21)
[2025-09-05 07:49] VITALS: BP 166/85; PULSE 65; RESP 22; TEMP 36.7; O2SAT 96
--- NOTE | 2025-09-05 09:16 | P.PN_ITS ---
Subjective 2 Subjective: Chaka Horn is a 75 year old male with prior medical history of HLD, DM, CKD, CHF, BPH, PNA, MAYI, pulmonary edema, anemia, asthma, biliary colic, gallbladder disease, failure to thrive, dysphagia, tinea corporis, multiple thyroid nodules, stroke, former smoker, and dementia presenting with complaints of shortness of breath and lethargy. Patient is normally on 3 L of O2, required 10L facemask [employer] then ventilator rate 14, FiO2 40% Bipap. Now requiring 5 L simple facemask here. Approximately 3 days ago, symptoms began and he presented to [facility] via private vehicle. At OSH, spo2 in the 80's, WBC 10.6, HGB 10.3, PLT 189, glucose 133, creatinine 1.1, BUN 21. Lactic acidosis 3.9, procalcitonin 0.30. Troponin 0.015, myco pneumoniae NEG, EKG; SR with occasional PVC's, non- specific ST and T wave abnormality, QT 488, QTC 541. He was diagnosed with COVID and started on remdesivir, decadron, and Lasix. He was transported to [facility] ED for a higher level care. 09/05/25 patient resting comfortably in bed with 3 L facemask on at time of interview. Daughter at bedside. Patient is still eating well and feels improved overnight but would like to stay 1 additional midnight to have oxygen status observed. BNP was 55852?repeat pending. He has discharge planning for tomorrow 09/06/2025. His will pick him up and he will DC to home. Vitals/I&O/Wt Last Vital Signs Temp 98.0 F 09/05/25 16:00 Pulse 58 L 09/05/25 16:00 Resp 19 H 09/05/25 16:00 BP 167/98 09/05/25 16:00 Pulse Ox 97 09/05/25 16:00 O2 Del Method Oxymask 09/05/25 04:00 O2 Flow Rate 3 09/05/25 00:30 09/05/25 09/05/25 09/05/25 06:59 14:59 22:59 Intake Total 250 / 490 720 / 720 Output Total 450 / 1150 350 / 350 Balance -200 / -660 370 / 370 Weight last 48 hrs Weight 65.3 kg Weight 65.3 kg Weight 67 kg Physical Exam 2 Const: COMMON NORMALS: no acute distress and alert HENMT: COMMON NORMALS: normocephalic and atraumatic HEAD & SCALP: normal to inspection, normocephalic and atraumatic Eye: COMMON NORMALS: Equal, round and reactive pupils present PUPIL: Yes Equal, round and reactive pupils present Neck/C-Spine: COMMON NORMALS: no JVD Lymph: LYMPHATIC: no lymphadenopathy noted Chest: COMMONS NORMALS: normal inspection of the chest Resp: OTHER: decreased breath sounds improving Cardio: COMMON NORMALS: no JVD, regular rate and regular rhythm RATE: r egular rate RHYTHM: regular rhythm GI: COMMON NORMALS: Normal to inspection, nondistended, normoactive bowel sounds present Neuro: SENSORIUM/ORIENTATION: Yes alert Data 09/05/25 02:26 09/05/25 02:26 A&P Assessment and plan 1. Dyspnea: Pulse oximetry Supplemental O2 to keep saturations greater than 92% Patient normally on 3 L O2 at home, required up to 10L at OSH Now back on baseline 3 L facemask Treatment for COVID 2. COVID: Denies sick contacts, symptoms started 3 days ago CXR Remdesivir considered but not given at OSH s/t hospital policy Dexamethasone Lovenox Vitamin C, vitamin D, zinc Droplet isolation Pantoprazole 3. Sepsis: SIRS criteria positive at OSH T 100.5, spo2 84% on normal 3L home O2, RR > 20 pH 7.43, pCO@ 47, pO2 71, HCO3 30 Procalcitonin 0.30 Urinalysis; 3+ protien, 2+ blood, otherwise clear Blood cultures drawn Monitor lactic, procalcitonin Fluids held in lieu of fluid overload - lasix given Rocephin, Azithromycin Probiotic 4. Hyperlipidemia: Continue home atorvastatin 5. CHF (congestive heart failure): Acute respiratory failure with hypoxia 06/03/2024 ECHO at [facility]; left ventricle normal in size, no segmental wall abnormalities, global LV systolic function preserved, normal left atrial and right ventricle size, preserved right ventricular systolic function, right atrium normal in size. Valves; aortic valve is trileaflet in appearance, mild aortic sclerosis, mild aortic regurgitation, aortic root is normal in size, mitral valve structurally normal, mild mitral regurgitation, pulmonic valve structurally and functionally normal, mild tricuspid regurgitation, see full results. EF 65-70%. Repeat ECHO EKG Lasix BNP was 12,159 > repeat BNP pending I&O monitoring 6. Hypertension: BP 180s systolic now 155 systolic this morning Continue home Metoprolol 7. Dementia: Continue home donepezil 8. History of [place] (myocardial infarction): Established with [facility] EKG ECHO in 05/2024 at [facility] as above Repeat ECHO 9. Diabetes mellitus: On home metformin - hold Sliding scale A1c 4.9, stable PDMP PDMP Reviewed: Not Reviewed Attestations 2 Medical Necessity Statement*: Patient not expected to stay 2 additional midnights. Patient expected discharge tomorrow with family to home. Diagnoses Dyspnea R06.00 COVID U07.1 Sepsis A41.9 Hyperlipidemia E78.5 CHF (congestive heart failure) I50.9 Hypertension I10 Dementia F03.90 History of [place] (myocardial infarction) I25.2 Diabetes mellitus E11.9
--- NOTE | 2025-09-05 09:53 | PC.CHAP ---
Pastoral Care Encounter/Spiritual Assessment Type of Contact [] Declined demand equipment repairer visit [] Patient/Family/Request visit [] Outpatient visit [] Follow-up visit [] Physician referral [] Code/Alert [] Routine visit [] Staff referral [] Actively dying [] Patient sleeping [] Family support [] [] Out of room [] Palliative care [] [] Receiving care in room [] Pre-surgical visit [] Trauma [] Long length of stay [] ICU visit [x] Other:Contact precautions. No visit. Relational/Emotional Strength [] Patient feels connected with others/family/visitors/staff [] Distress [] Loneliness/isolation [] Abandonment Spirituality of Patient [] Person of Jennifer [] Attends Buddhism of their Jennifer [] Believes in Prayer [] Reads Bible or Hinduism materials [] There are Spiritual issues to be addressed Search Strategist Interventions [] Prayer [] Active listening [] Non-anxious presence [] Spiritual/emotional support [] Crisis/trauma care [] Spiritual counseling [] Bereavement support [] Provided bereavement packet [] Provided Bible/devotional materials [] Provided toy/stuffed animal, coloring book to patient or family member [] Provided Communion [] Anointing/[place] [] Salvation [] Completed spiritual assessment [] Other: Impact on Illness or Injury [] Angry [] Fearful [] Anxious [] Often cries [] Exhaustion [] Unable to work [] Unable to attend orthodoxy [] Unable to walk/stand [] Unable to read [] Unable to drive [] Unable to eat/drink [] Unable to sleep [] Unable to be with family [] Patient intubated [] Other: Summary Time spent with patient
[2025-09-05] MEDS: pantoprazole 40 mg SDV IVP (12:36)
[2025-09-05 16:00] VITALS: BP 167/98; PULSE 58; RESP 19; TEMP 36.7; O2SAT 97
[2025-09-05 18:24] LABS: NT Pro B Type Natriuretic Pept 11522 pg/mL (0-125)
[2025-09-05 19:44] VITALS: BP 166/81; PULSE 66; RESP 24; TEMP 36.9; O2SAT 95
[2025-09-05] MEDS: ATORVASTATIN 20 MG TABLET PO (21:33)
--- NOTE | 2025-09-05 22:52 | PC.NURSE ---
Patient transferred to med surg room 261. Elaine was notified of room change.
[2025-09-06] VITALS: BP 167/80; PULSE 67; RESP 15; TEMP 37; O2SAT 94
[2025-09-06] MEDS: cefTRIAXone 1,000 mg SDV 1000 MG IVP (01:43)
[2025-09-06 04:00] VITALS: BP 166/79; PULSE 56; RESP 17; TEMP 36.7; O2SAT 92
[2025-09-06] MEDS: lactobacillus 1 Tablet 1 TAB PO (04:21)
[2025-09-06 06:00] VITALS: BMI 23.8
[2025-09-06 07:35] VITALS: BP 162/81; PULSE 56; RESP 17; TEMP 36.9; O2SAT 92
[2025-09-06 11:24] VITALS: BP 164/80; PULSE 60; RESP 18; TEMP 36.8; O2SAT 90
[2025-09-06] MEDS: pantoprazole 40 mg SDV IVP (12:31)
[2025-09-06 13:15] LABS: Alanine Aminotransferase < 5 U/L (0-41); Albumin Level 3.4 g/dL (3.5-5.2); Alkaline Phosphatase 63 U/L (40-130); Anion Gap 12.0 (5-19); Aspartate Amino Transferase 14 U/L (0-40); Blood Urea Nitrogen 23 mg/dL (8-23); Calcium 8.8 mg/dL (8.5-10.5); Carbon Dioxide 34 mmol/L (22-29); Chloride 98 mmol/L (98-107); Globulin 2.4 g/dL (1.3-4.6); Glucose 220 mg/dL (65-115); Magnesium 1.6 mg/dL (1.7-2.3); Osmolality Calculated 300 mOsm/kg (285-295); Potassium 4.0 mmol/L (3.5-5.1); Sodium 140 mmol/L (136-145); Total Protein 5.8 g/dL (6.6-8.7)
[2025-09-06 13:17] LABS: Hematocrit 29.2 % (37-53); Hemoglobin 9.00 g/dL (11.27-16.99); Mean Corpuscular HGB Conc 30.8 g/dL (30-55); Mean Corpuscular Hemoglobin 25.1 pg (27-33); Mean Corpuscular Volume 81.3 fl (82-101); Nucleated Red Blood Cells % 0 %; Platelet Count 175 10^3/cmm (157-399); Red Blood Count 3.59 10^6/uL (3.85-5.65); White Blood Count 7.81 10^3/uL (3.29-11.43)
--- NOTE | 2025-09-08 12:20 | P.DS_ITS ---
Discharge Providers Date of Admission: 09/04/25 07:15 Date of Discharge: September 08, 2025 Attending Provider at Admission: Bobby Montiel MD Attending Provider at Discharge: Mary Beth Victoria MD Primary Care Provider: Dorothy Millard DO Diagnoses at Discharge Discharge Diagnosis 1. Dyspnea: 2. COVID: 3. Sepsis: 4. Hyperlipidemia: 5. CHF (congestive heart failure): 6. Hypertension: 7. Dementia: 8. History of CO (myocardial infarction): 9. Diabetes mellitus: Reason for Visit Reason for Visit: pneumonia, covid pos Brief History: As per the previous retrospective note and admitting physician H&P: Chaka Horn is a 75 year old male with prior medical history of HLD, DM, CKD, CHF, BPH, PNA, MAYI, pulmonary edema, anemia, asthma, biliary colic, gallbladder disease, failure to thrive, dysphagia, tinea corporis, multiple thyroid nodules, stroke, former smoker, and dementia presenting with complaints of shortness of breath and lethargy. Patient is normally on 3 L of O2, required 10L facemask [employer] then ventilator rate 14, FiO2 40% Bipap. Now requiring 5 L simple facemask here. Approximately 3 days ago, symptoms began and he presented to [facility] via private vehicle. At OSH, spo2 in the 80's, WBC 10.6, HGB 10.3, PLT 189, glucose 133, creatinine 1.1, BUN 21. Lactic acidosis 3.9, procalcitonin 0.30. Troponin 0.015, myco pneumoniae NEG, EKG; SR with occasional PVC's, non- specific ST and T wave abnormality, QT 488, QTC 541. He was diagnosed with COVID and started on remdesivir, decadron, and Lasix. He was transported to [facility] ED for a higher level care. Hospital Course Hospital Course Patient admitted as a case of COVID-pneumonia, based on the retrospective note the patient was requiring BiPAP and high oxygen therapy. However when the patient presented to [facility] he was at baseline requiring only 2 to 3 L oxygen supplementation through nasal cannula, without any discomfort and able to speak in full sentences. He had mild anemia but at baseline. No leukocytosis. His diagnostics were reviewed and managed comorbidities accordingly. He remained stable during his hospital stay. Patient remained stable and upon further discussion of plan of care the patient agreed to be discharged since his COVID was stable and discharged on Paxlovid to complete the course of COVID 19 management as per protocol at home Patient was provided with medications that were were reconciled after confirmation and according to patient comorbidities and appropriate follow-ups and referrals were provided at the time of discharge/transfer. patient understanding/establishing the stability of the current condition was considered during discharge/Transfer with all the risk and benefits thoroughly explained. Patient condition has been discussed at length with the patient/family, I have independently reviewed the chart labs imaging/diagnostics/EKG. the goals of care and code status with the patient/family/NOK/legal rental representative, and documented accordingly. The management has been done according to the current clinical condition with respect to patient goals of care and based on recommendations/guidelines. The patient/family has been informed about the current condition and further plan of care. Agreed with the plan of care and understood without any language barrier. Every effort was made to ensure accuracy of physician intensivist. Any obvious errors or omissions should be clarified with the author of the document. Physical Exam Narrative: General: Alert and oriented, lying comfortably without any distress on 2 L nasal cannula, able to speak in full sentences HEENT: Normocephalic, atraumatic, grossly unremarkable exam Cardio: normal rate rhythm, normal S1-S2 without any murmurs, rubs, or gallops and JVD normal Respiratory: normal vascular breathing on auscultation without wheezes, no stridor or rhonchi, not in distress and able to speak in full sentences GI: Abdomen soft, nontender, nondistended, normoactive bowel sounds present all 4 quadrants, Neuro: intact cranial nerves motor and sensory and cerebellar/coordination function without any focal neurological deficit Behavior: Appropriate and cooperative Extremities: Adequate palpable pulses, mild trace pedal edema Discharge Data Studies Completed and Pending Completed Studies During Hospitalization Category Date Time Status CV. echo complete* [id number] Routine Ultrasound 09/04/25 12:28 Completed Laboratory Results WBC 7.81 10^3/uL (3.29-11.43) 09/06/25 12:42 RBC 3.59 10^6/uL (3.85-5.65) L 09/06/25 12:42 Hgb 9.00 g/dL (11.27-16.99) L 09/06/25 12:42 Hct 29.2 % (37-53) L 09/06/25 12:42 MCV 81.3 fl (82-101) L 09/06/25 12:42 MCH 25.1 pg (27-33) L 09/06/25 12:42 MCHC 30.8 g/dL (30-55) 09/06/25 12:42 RDW 17.7 % (12.1-15.1) H 09/06/25 12:42 Plt Count 175 10^3/cmm (157-399) 09/06/25 12:42 MPV 11.8 fL (7.4-10.4) H 09/06/25 12:42 Neut % (Auto) 84.0 % 09/06/25 12:42 Lymph % (Auto) 10.1 % 09/06/25 12:42 [place] % (Auto) 5.4 % 09/06/25 12:42 Eos % (Auto) 0.0 % 09/06/25 12:42 Baso % (Auto) 0.1 % 09/06/25 12:42 Neut # (Auto) 6.56 10^3/uL (1.8-7.7) 09/06/25 12:42 Lymph # (Auto) 0.8 10^3/uL (0.8-4.8) 09/06/25 12:42 [place] # (Auto) 0.4 10^3/uL (0.2-0.9) 09/06/25 12:42 Eos # (Auto) 0.0 10^3/uL (0.0-0.8) 09/06/25 12:42 Baso # (Auto) 0.0 10^3/uL (0.0-0.1) 09/06/25 12:42 Nucleated RBC % (auto) 0 % 09/06/25 12:42 Nucleated RBCs # 0.0 /100WBC 09/06/25 12:42 Sodium 140 mmol/L (136-145) 09/06/25 12:42 Potassium 4.0 mmol/L (3.5-5.1) 09/06/25 12:42 Chloride 98 mmol/L (98-107) 09/06/25 12:42 Carbon Dioxide 34 mmol/L (22-29) H 09/06/25 12:42 Anion Gap 12.0 (5-19) 09/06/25 12:42 BUN 23 mg/dL (8-23) 09/06/25 12:42 Creatinine 1.2 mg/dL (0.7-1.2) 09/06/25 12:42 GFR Calculation Not Reportable 09/06/25 12:42 Glucose 220 mg/dL (65-115) H 09/06/25 12:42 POC Glucose 194 mg/dL (70-110) H 09/06/25 11:15 Estimat Average Glucose 94 09/04/25 14:25 Hemoglobin A1c 4.9 % (4.0-6.0) 09/04/25 14:25 Calculated Osmolality 300 mOsm/kg (285-295) H 09/06/25 12:42 Calcium 8.8 mg/dL (8.5-10.5) 09/06/25 12:42 Magnesium 1.6 mg/dL (1.7-2.3) L 09/06/25 12:42 Total Bilirubin 0.3 mg/dL (0.15-1.2) 09/06/25 12:42 AST 14 U/L (0-40) 09/06/25 12:42 ALT < 5 U/L (0-41) 09/06/25 12:42 Alkaline Phosphatase 63 U/L (40-130) 09/06/25 12:42 NT-Pro-B Natriuret Pep 17928 pg/mL (0-125) H 09/05/25 02:26 Total Protein 5.8 g/dL (6.6-8.7) L 09/06/25 12:42 Albumin 3.4 g/dL (3.5-5.2) L 09/06/25 12:42 Globulin 2.4 g/dL (1.3-4.6) 09/06/25 12:42 Triglycerides 56 mg/dL (0-150) 09/04/25 14:25 Cholesterol 98 mg/dL (0-200) 09/04/25 14: LDL Cholesterol, Calc 39 mg/dL (50-129) L 09/04/25 14: HDL Cholesterol 48 mg/dL (60-100) L 09/04/25 14: LDL/HDL Ratio 0.81 RATIO (0.00-3.22) 09/04/25 14:25 Cholesterol/HDL Ratio 2.04 mg/dL (1.0-5.00) 09/04/25 14:25 Vitals Last Vital Signs Temp 98.2 F 09/06/25 11:24 Pulse 60 09/06/25 11:24 Resp 18 09/06/25 11:24 BP 164/80 09/06/25 11:24 Pulse Ox 90 09/06/25 11:24 O2 Del Method Nasal Cannula 09/06/25 11:24 O2 Flow Rate 2 09/06/25 04:00 Discharge Plan Discharge Patient Disposition: Home Condition: Stable Prescriptions: New Paxlovid 150 mg (10)- 100 mg (10) tablets,dose pack See Rx Instructions .ROUTE .COMPLEX Qty: 20 0RF Rx Instructions: orally per package directions Continued tamsulosin 0.4 mg capsule 0.4 mg PO DAILY montelukast 10 mg tablet 10 mg PO DAILY pantoprazole 40 mg tablet,delayed release (DR/EC) 40 mg PO BID amlodipine 10 mg tablet 10 mg PO DAILY atorvastatin 20 mg tablet 20 mg PO DAILY escitalopram oxalate 20 mg tablet 20 mg PO DAILY donepezil [Aricept] 5 mg tablet 5 mg PO DAILY cyanocobalamin (vitamin B-12) 1,000 mcg capsule 1,000 mcg PO DAILY quetiapine 25 mg tablet 25 mg PO BID metformin 500 mg tablet 1,000 mg PO BID potassium chloride 10 mEq capsule, extended release 30 meq PO BID trazodone 150 mg tablet 150 mg PO BEDTIME bumetanide 0.5 mg tablet 0.5 mg PO QAM furosemide 20 mg tablet 20 mg PO DAILY magnesium 200 mg Tablet 200 mg PO DAILY metoprolol tartrate 25 mg tablet 50 mg PO BID Discharge Order = DC NOW: Discharge Order (Routine); Ordered 09/06/25 Ordered By: Mary Beth Victoria Referrals: Dorothy Millard DO [Primary Care Provider] - 09/14/25 1:20 pm Discharge Diet: Advance as tolerated Discharge Activity: Resume usual activity Patient Instructions: Prednisone (By mouth), Levofloxacin (By mouth), Nirmatrelvir/Ritonavir (By mouth) (Paxlovid), Angina (ED), How To Wash Your Hands (DC), COVID-19 and Chronic Health Conditions (DC), Opioid Safety, Patient Portal & Laura Instructions Discharge Attestations Time Spent in Discharge Care*: greater than 30 min Specific Discharge Activities: educating patient, educating and/or supporting family/caregiver, discussing with pcp/other providers, discussing with assistant case manager/social workers/dc planners, documenting/other paperwork and evaluating patient/reviewing data Status at Discharge: Cognitive status at discharge: cognitively intact , B ehavioral status at discharge: cooperative , Functional status at discharge: other assisted ambulation , Overall status at discharge: patient is back to baseline Quality Metrics Clinical Quality Measures [ No reported AMI, CVA or VTE this stay] Coding Level of Care Code Acute Code for Chg Fwd Diagnoses Dyspnea R06.00 COVID U07.1 Sepsis A41.9 Hyperlipidemia E78.5 CHF (congestive heart failure) I50.9 Hypertension I10 Dementia F03.90 History of [place] (myocardial infarction) I25.2 Diabetes mellitus E11.9
== END 2025-09-06 15:05 | disposition home or self-care (01) | DRG 871 ==
LOC: CSU 11:03 → MEDSURG 09-05 22:45
PROVIDERS: Clinical Nurse Specialist Acute Care; Admitting Provider Internal Medicine; PCP Student in an Organized Health Care Education/Training Program; Visit Provider Student in an Organized Health Care Education/Training Program
DX: A41.9 Sepsis, unspecified organism (principal); J12.82 Pneumonia due to coronavirus disease 2019; U07.1 COVID-19; I13.0 Hypertensive heart and chronic kidney disease with heart failure and stage 1 through stage 4 chronic kidney disease, or unspecified chronic kidney disease; E87.20 Acidosis, unspecified; I50.9 Heart failure, unspecified; N18.9 Chronic kidney disease, unspecified; E78.5 Hyperlipidemia, unspecified; F03.90 Unspecified dementia, unspecified severity, without behavioral disturbance, psychotic disturbance, mood disturbance, and anxiety; I25.2 Old myocardial infarction; E11.9 Type 2 diabetes mellitus without complications; N40.0 Benign prostatic hyperplasia without lower urinary tract symptoms; G47.33 Obstructive sleep apnea (adult) (pediatric); D63.1 Anemia in chronic kidney disease; J45.909 Unspecified asthma, uncomplicated; R13.10 Dysphagia, unspecified; E04.2 Nontoxic multinodular goiter; Z79.84 Long term (current) use of oral hypoglycemic drugs; Z87.01 Personal history of pneumonia (recurrent); Z86.73 Personal history of transient ischemic attack (TIA), and cerebral infarction without residual deficits; Z87.891 Personal history of nicotine dependence
CPT/HCPCS: 36415; 36416; 80053; 80061; 82962; 83036; 83735; 83880; 85025; 93306; 96372; J0456; J0696; J1100; J1650; J1815; J2470; J7050; J9999